=== PATIENT | male | born 1975 | race Caucasian/White ===

== ENCOUNTER 2018-09-18 12:30 | Emergency (ER) | payer MEDICAID ==
[~2018-09-18] VITALS: Ht 190.5 cm; Wt 79.8 kg
[2018-09-18 12:32] VITALS: BP 124/78
--- NOTE | 2018-09-18 12:39 | NUR ---
PT AMBULATORY TO [facility] FROM LOBBY WITH STEADY GAIT. NAD NOTED. RESP REGULAR AND UNLABORED. FARRUKH BROWN AT BEDSIDE FOR EVALUATION. CALL LIGHT IN REACH. FALL PRECAUTIONS IN PLACE.
--- NOTE | 2018-09-18 13:11 | NUR ---
PT IN RAD/US
--- NOTE | 2018-09-18 13:28 | NUR ---
PT REMAINS IN US
--- NOTE | 2018-09-18 14:05 | NUR ---
PT BACK FROM US. NAD NOTED. AWAITING RESULTS AND RECHECK. DENIES NEED TO USE RESTROOM. CALL LIGHT IN REACH. FALL PRECAUTIONS IN PLACE.
--- NOTE | 2018-09-18 14:20 | NUR ---
FARRUKH BROWN AT BEDSIDE FOR RECHECK
== END 2018-09-18 14:51 | disposition home or self-care (01) ==
LOC: ED 14:45
DX: L03.116 Cellulitis of left lower limb (principal); S80.12XA Contusion of left lower leg, initial encounter; J00 Acute nasopharyngitis [common cold]; Z88.1 Allergy status to other antibiotic agents; W22.03XA Walked into furniture, initial encounter; Y93.89 Activity, other specified; Y92.89 Other specified places as the place of occurrence of the external cause; Y99.8 Other external cause status
CPT/HCPCS: 71046; 99284

== ENCOUNTER 2018-09-28 06:34 | Emergency (ER) | payer MEDICAID ==
[~2018-09-28] VITALS: Ht 190.5 cm; Wt 79.2 kg
[2018-09-28 06:38] VITALS: BP 127/80
--- NOTE | 2018-09-28 06:52 | NUR ---
Report from Evans PEREZ.
--- NOTE | 2018-09-28 06:55 | NUR ---
Pt is sitting in chair. Pt is alert, oriented, with NAD.
--- NOTE | 2018-09-28 07:10 | NUR ---
Informed pt of POC.
[2018-09-28 07:32] LABS: MEAN CORPUSCULAR HGB CONC 33.5 g/dL (33.2-36.2); MEAN CORPUSCULAR VOLUME 95.5 fL (81-97); MEAN PLATELET VOLUME 8.4 fL (7.4-10.4); PLATELET COUNT 208 x10^3/uL (130-400); RED BLOOD COUNT 4.65 x10^6/uL (4.38-5.82); RED CELL DISTRIBUTION WIDTH 13.9 % (9.4-14.8)
[2018-09-28 07:34] LABS: ALBUMIN 3.6 g/dL (3.4-5.0); ANION GAP 7 mmol/L (5-15); CALCIUM 8.6 mg/dL (8.5-10.1); CHLORIDE 105 mmol/L (98-107); CREATININE 0.77 mg/dL (0.7-1.3)
--- NOTE | 2018-09-28 08:20 | NUR ---
Patient given discharge instructions and they have confirmed that they understand the instructions. Patient ambulatory with steady gait.
[2018-09-28 08:39] LABS: BASOPHILS # (AUTO) 0.02 x10^3/uL (0-0.1); BASOPHILS % (AUTO) 1 % (0-1); EOSINOPHILS # (AUTO) 0.31 x10^3/uL (0-0.4); EOSINOPHILS % (AUTO) 7 % (1-7); LYMPHOCYTES # (AUTO) 1.03 x10^3/uL (1-3.4); LYMPHOCYTES % (AUTO) 24 % (22-44); MD SCAN; MONOCYTES # (AUTO) 0.72 x10^3/uL (0.2-0.8); MONOCYTES % (AUTO) 17 % (2-9); NEUTROPHILS # (AUTO) 2.26 x10^3/uL (1.8-6.8); NEUTROPHILS % (AUTO) 52 % (42-75)
== END 2018-09-28 08:22 | disposition home or self-care (01) ==
LOC: ED 07:20
DX: T37.0X5A Adverse effect of sulfonamides, initial encounter (principal); Y92.89 Other specified places as the place of occurrence of the external cause
CPT/HCPCS: 36415; 80048; 82040; 85025; 99283